=== PATIENT | female | born 1955 | race Hispanic/Latino ===

== ENCOUNTER → 2024-09-04 | Outpatient (CLI) | payer OTHER ==
[~2024-09-04] MED LIST: CALC-1038 PO; CYAN1TAB44 PO; DIVA500T69 PO; MULT-1192 PO
--- NOTE | 2024-09-04 14:15 | HMCIMG ---
Exam Type: CT HEAD/BRAIN W/O CONTRAST Clinical Information: Concussion with loss of consciousness of unspecified duration, initial enco Comparison: None CT Dose Index (CTDI): 57.33 mGy Dose Length Product (DLP): 956.79 total mGy-cm Findings: There is low attenuation throughout the periventricular white matter locations, consistent with chronic small vessel ischemic changes. No acute intra- or extra-axial fluid collections are seen. There is no evidence of acute or chronic hemorrhage. There is no mass effect or shift of midline structures. There are no areas to suggest acute infarct. The skull windows show no significant abnormalities. IMPRESSION: 1. CHRONIC SMALL VESSEL ISCHEMIC CHANGES.
--- NOTE | 2024-09-04 14:18 | HMCIMG ---
Exam Type: CT cervical spine without contrast Clinical Information: Concussion with loss of consciousness of unspecified duration, initial enco Comparison: None Technique: Spiral axial images were performed from the base of the skull down to the thoracic vertebral bodies. Both sagittal and coronal reconstructions were performed. CT Dose Index (CTDI): 12.85 mGy Dose Length Product (DLP): 282.6 total Findings: There are degenerative changes. Degenerative disc disease is noted at multiple levels. There is adequate alignment and preservation of normal cervial lordosis. There is facet hypertrophy at multiple levels. IMPRESSION: Degenerative changes as noted. No acute pathology. No fractures seen. This study was performed using dose reduction techniques to include automated exposure control and/or adjustment of the mA and/or kV according to patient size.
== END | disposition home or self-care (01) ==
LOC: RAH 13:38
PROVIDERS: ATTEND Internal Medicine
DX: S06.0X9A Concussion with loss of consciousness of unspecified duration, initial encounter (principal); W19.XXXA Unspecified fall, initial encounter; Y93.89 Activity, other specified; Y92.89 Other specified places as the place of occurrence of the external cause; Y99.8 Other external cause status; M50.10 Cervical disc disorder with radiculopathy, unspecified cervical region; M47.22 Other spondylosis with radiculopathy, cervical region
CPT/HCPCS: 70450; 72125

== ENCOUNTER → 2025-02-12 | Outpatient (CLI) | payer OTHER ==
--- NOTE | 2025-02-12 12:54 | HMCIMG ---
EXAM: MR RIGHT SHOULDER WITHOUT CONTRAST CLINICAL HISTORY: A 69-year-old female with pain in the right shoulder. TECHNIQUE: Multiplanar multisequence magnetic resonance images were obtained without contrast. CONTRAST: None COMPARISON: None FINDINGS: JOINTS: Mild degenerative changes of the acromioclavicular joint with capsular hypertrophy and encroachment on supraspinatus and infraspinatus. BONE: No acute fracture or focal osseous lesion. SOFT TISSUES: Fluid around the biceps tendon suggesting mild bicipital tendinitis. A focal high-grade partial-thickness tear of supraspinatus is seen. Loss of fibers greater than 70% with focal tear at the footplate. No evidence of retraction of the rotator cuff tear. IMPRESSION: 1. Focal high-grade partial-thickness tear of supraspinatus with loss of fibers greater than 70% and focal tear at the footplate. No evidence of retraction. 2. Mild bicipital tendinitis. 3. Mild degenerative changes of the acromioclavicular joint with capsular hypertrophy and encroachment on supraspinatus and infraspinatus. /Olga
== END | disposition home or self-care (01) ==
LOC: RAH 08:37
PROVIDERS: ATTEND Internal Medicine
DX: M75.111 Incomplete rotator cuff tear or rupture of right shoulder, not specified as traumatic (principal); M19.011 Primary osteoarthritis, right shoulder; M75.21 Bicipital tendinitis, right shoulder; M25.511 Pain in right shoulder
CPT/HCPCS: 73221